=== PATIENT | female | born 1980 | race Caucasian/White ===

== ENCOUNTER 2018-01-09 18:10 | Emergency (ER) | payer BC ==
--- NOTE | 2018-01-09 18:32 | ED PDOC ---
- ECG O2 Sat by Pulse Oximetry: 99 Disposition - Disposition
--- NOTE | 2018-01-09 18:32 | ED PDOC ---
HPI: Psych/Substance Abuse Time Seen by Provider: 01/09/18 18:11 Chief Complaint (Nursing): Anxiety Chief Complaint (Provider): anxiety History Per: Patient, EMS Additional Complaint(s): 37 year old female arrives via EMS for crisis eval. Patient was at work when she had a panic attack while talking with some co-workers. Patient states that she was talking to some co-workers about a recent loss that she suffered and this caused her to have a panic attack. Patient states upon arrival she feels that panic attack symptoms have subsided. Patient denies any suicidal or homicidal ideation. EMS state that patient was expressing thoughts of wanting to harm herself to her co-workers and they called police and EMS. Patient was given 1 mg IV ativan prior to arrival to ED. PMD: Dr. Minal Iyer Past Medical History Reviewed: Historical Data, Nursing Documentation, Vital Signs Vital Signs: Last Vital Signs Temp 98.6 F 01/09/18 18:20 Pulse 75 01/09/18 18:20 Resp 19 01/09/18 18:20 BP 99/66 L 01/09/18 18:20 Pulse Ox 99 01/09/18 18:20 - Medical History PMH: Anxiety, Depression - Surgical History Surgical History: Appendectomy - Family History Family History: States: No Known Family Hx - Living Arrangements Living Arrangements: With Family - Social History Current smoker - smoking cessation education provided: Yes Alcohol: Social Drugs: Denies - Allergies Allergies/Adverse Reactions: Allergies Allergy/AdvReac Type Severity Reaction Status Date / Time No Known Allergies Allergy Verified 01/09/18 18:11 Review of Systems ROS Statement: Except As Marked, All Systems Reviewed And Found Negative Constitutional: Negative for: Fever Cardiovascular: Negative for: Chest Pain, Palpitations Respiratory: Negative for: Cough Gastrointestinal: Negative for: Nausea, Vomiting Psych: Positive for: Anxiety, Depression. Negative for: Suicidal ideation Physical Exam - Reviewed Nursing Documentation Reviewed: Yes Vital Signs Reviewed: Yes - Physical Exam Appears: Positive for: Well, Non-toxic, No Acute Distress Skin: Positive for: Normal Color. Negative for: Rash Eye Exam: Positive for: Normal appearance Cardiovascular/Chest: Positive for: Regular Rate, Rhythm Respiratory: Positive for: Normal Breath Sounds. Negative for: Wheezing, Respiratory Distress Back: Negative for: L CVA Tenderness, R CVA Tenderness Extremity: Positive for: Normal ROM Neurologic/Psych: Positive for: Alert, Oriented - Laboratory Results Result Diagrams: 01/09/18 19:14 01/09/18 19:14 Urine POC: Negative - ECG O2 Sat by Pulse Oximetry: 99 Pulse Ox Interpretation: Normal Medical Decision Making Medical Decision Makin37 year old female with anxiety Plan: 1:1 observation crisis eval CBC CMP UA BAL UDS CXR EKG As per crisis counselor and psychiatrist transition specialist, Dr. Cardoso, patient does not meet criteria for admission and is stable for discharge. Patient was provided with referrals for outpatient follow up. Disposition - Clinical Impression Clinical Impression: Anxiety - Patient ED Disposition Is Patient to be Admitted: No Counseled Patient/Family Regarding: Studies Performed, Diagnosis, Need For Followup - Disposition Referrals: Ye Iyer MD [Family Provider] - Disposition: Routine/Home Disposition Time: 20:05 Condition: STABLE Additional Instructions: Follow up with primary care doctor or return to ED at any time if worse. Instructions: Anxiety, Adult (DC) Forms: [employer] (Iraqi) Results - Lab Results Lab Results: 01/09/18 01/09/18 01/09/18 19:14 19:14 19:14 WBC RBC Hgb Hct MCV MCH MCHC RDW Plt Count MPV Neut % (Auto) Lymph % (Auto) [place] % (Auto) Eos % (Auto) Baso % (Auto) Neut # (Auto) Lymph # (Auto) [place] # (Auto) Eos # (Auto) Baso # (Auto) Sodium 142 Potassium 3.8 Chloride 105 Carbon Dioxide 24 Anion Gap 17 BUN 11 Creatinine 0.6 L Est GFR ( Amer) > 60 Est GFR (Non-Af Amer) > 60 Random Glucose 97 Calcium 9.3 Total Bilirubin 0.5 AST 25 ALT 23 Alkaline Phosphatase 48 Total Protein 8.0 Albumin 4.6 Globulin 3.4 Albumin/Globulin Ratio 1.3 Urine Color Yellow Urine Clarity Slight-cloudy Urine pH 5.0 Ur Specific [place] 1.018 Urine Protein 30 Urine Glucose (UA) Negative Urine Ketones 20 Urine Blood Negative Urine Nitrate Negative Urine Bilirubin Negative Urine Urobilinogen 0.2 Ur Leukocyte Esterase Neg Urine RBC (Auto) 3 Urine Microscopic WBC < 1 Ur Squamous Epith Cells 2 Urine Bacteria Few H Urine Opiates Screen Negative Urine Methadone Screen Negative Ur Barbiturates Screen Positive H Ur Phencyclidine Scrn Negative Ur Amphetamines Screen Negative U Benzodiazepines Scrn Negative U Oth Cocaine Metabols Negative U Cannabinoids Screen Negative Alcohol, Quantitative < 10 01/09/18 19:14 WBC 10.0 RBC 4.43 Hgb 14.6 Hct 42.4 MCV 95.6 MCH 32.9 H MCHC 34.4 RDW 13.4 Plt Count 233 MPV 7.5 Neut % (Auto) 72.4 Lymph % (Auto) 18.3 L [place] % (Auto) 7.8 Eos % (Auto) 0.8 Baso % (Auto) 0.7 Neut # (Auto) 7.2 H Lymph # (Auto) 1.8 [place] # (Auto) 0.8 Eos # (Auto) 0.1 Baso # (Auto) 0.1 Sodium Potassium Chloride Carbon Dioxide Anion Gap BUN Creatinine Est GFR ( Amer) Est GFR (Non-Af Amer) Random Glucose Calcium Total Bilirubin AST ALT Alkaline Phosphatase Total Protein Albumin Globulin Albumin/Globulin Ratio Urine Color Urine Clarity Urine pH Ur Specific [place] Urine Protein Urine Glucose (UA) Urine Ketones Urine Blood Urine Nitrate Urine Bilirubin Urine Urobilinogen Ur Leukocyte Esterase Urine RBC (Auto) Urine Microscopic WBC Ur Squamous Epith Cells Urine Bacteria Urine Opiates Screen Urine Methadone Screen Ur Barbiturates Screen Ur Phencyclidine Scrn Ur Amphetamines Screen U Benzodiazepines Scrn U Oth Cocaine Metabols U Cannabinoids Screen Alcohol, Quantitative
[2018-01-09] MEDS ORDERED: Sodium Chloride 0.9% 1,000 ML IV STA (18:35)
[2018-01-09 19:29] LABS: BASO # 0.1 K/uL (0.0-0.2); BASO % 0.7 % (0.0-2.0); EOS # 0.1 K/uL (0.0-0.7); EOS % 0.8 % (0.0-4.0); HEMOGLOBIN 14.6 g/dL (12.0-16.0); LYMPH # 1.8 K/uL (1.0-4.3); LYMPH % 18.3 % (20.0-40.0); MEAN CELL VOLUME 95.6 fl (81.0-99.0); MEAN CORPUSCULAR HEMOGLOBIN 32.9 pg (27.0-31.0); MEAN CORPUSCULAR HGB CONC 34.4 g/dL (33.0-37.0); MEAN PLATELET VOLUME 7.5 fl (7.2-11.7); MONO # 0.8 K/uL (0.0-0.8); MONO % 7.8 % (0.0-10.0); NEUT # 7.2 K/uL (1.8-7.0); NEUT % 72.4 % (50.0-75.0); RBC 4.43 Mil/uL (3.80-5.20); RED CELL DISTRIBUTION WIDTH 13.4 % (11.5-14.5)
[2018-01-09 19:41] LABS: URINE CLARITY SLIGHT-CLOUDY (Clear); URINE COLOR YELLOW (YELLOW); URINE GLUCOSE (UA) NEGATIVE (Normal)
[2018-01-09 19:42] LABS: SQUAMOUS EPITHIAL 2 /hpf (0-5); URINE BILIRUBIN NEGATIVE (NEGATIVE); URINE BLOOD NEGATIVE (NEGATIVE); URINE LEUKOCYTE ESTERASE NEG Leu/uL (Negative); URINE PROTEIN 30 mg/dL (NEGATIVE); URINE UROBILINOGEN 0.2 mg/dL (0.2-1.0)
[2018-01-09 19:43] LABS: URINE BACTERIA FEW (<OCC)
[2018-01-09 19:49] LABS: BLOOD UREA NITROGEN 11 mg/dl (7-17); GFR AFRICAN-AMERICAN > 60; GFR NON-AFRICAN AMERICAN > 60
[2018-01-09 19:50] LABS: ALBUMIN 4.6 g/dL (3.5-5.0); ALT/SGPT 23 U/L (9-52); AST/SGOT 25 U/L (14-36); BARBITURATES, UR POSITIVE (NEGATIVE); CALCIUM 9.3 mg/dL (8.4-10.2)
[2018-01-09 19:51] LABS: BENZODIAZEPINES, UR NEGATIVE (NEGATIVE); OPIATES, UR NEGATIVE (NEGATIVE); PHENCYCLIDINE, UR NEGATIVE (NEGATIVE)
[2018-01-09 20:07] LABS: ALB/GLOB RATIO 1.3 (1.0-2.1)
[2018-01-09 21:33] VITALS: BP 118/74; PULSE 78; RESP 16; TEMP 98; O2SAT 98
== END 2018-01-09 21:36 | disposition home or self-care (01) ==
LOC: H.ER 18:10
DX: F41.0 Panic disorder [episodic paroxysmal anxiety] (principal); F17.200 Nicotine dependence, unspecified, uncomplicated; Z86.59 Personal history of other mental and behavioral disorders
CPT/HCPCS: 80053; 81003; 81025; 85025; 96360; 96361; 99283; G0480; J7030